=== PATIENT | female | born 1950 | race Caucasian/White ===

== ENCOUNTER → 2016-08-17 | Outpatient (REF) | payer BC ==
[~2016-08-17] MED LIST: *MAMMOGRAM; /LANS30GR; /MOXI40TA; ACET65TA; ASPEC81; ATEN25TA; ATENOLOL50 PO; ATRO0.06; BACTRIMDS PO; CALC600T10; CALCCHW12; CALCWAF4; CELE50CA; CELEBRE200 PO; CIPRO250 PO; ESTR3TA; HYDR25TA6; K-DUR10; LASIX40 PO; LODINE500 PO; LYRICA50 PO; MACROBID PO; MULTIVIT; NAPROSY250 PO; NASONEX NASAL; PREG100CA; PREVACID30 PO; PROTONIX40 PO; PROV90AE; PYRIDIU200 PO; RELAFEN PO; TENO50TA; THERGRAN; VIOXX25 PO; [UNRECOGNIZED DRUG - CODE] PO; [UNRECOGNIZED DRUG - CODE] PO; [UNRECOGNIZED DRUG - REMARK]
[2016-08-17 10:32] LABS: BASO % 0.9 % (0.0-1.0); EOS # 0.1 K/mm3 (0.0-0.50); EOS % 1.8 % (0.0-3.0); LARGE UNSTAINED CELL # 0.4 K/mm3 (0.0-0.4); LARGE UNSTAINED CELL % 6.6 % (0.0-4.0); LYMPH # 1.9 K/mm3 (1.5-4.5); LYMPH % 23.4 % (24.0-44.0); MEAN CORPUSCULAR HEMOGLOBIN 30.3 pg (27.0-33.0); MEAN CORPUSCULAR HGB CONC 32.3 g/dl (32.0-36.5); MEAN CORPUSCULAR VOLUME 93.7 fl (80.0-96.0); MONO # 0.6 K/mm3 (0.0-0.8); MONO % 8.8 % (0.0-5.0); NEUTROPHILS # 3.8 K/mm3 (1.8-7.7); NEUTROPHILS % 58.6 % (36.0-66.0); PLATELET COUNT, AUTOMATED 264 k/mm3 (150-450); WHITE BLOOD COUNT 6.4 K/mm3 (4.0-10.0)
[2016-08-17 11:13] LABS: ALBUMIN 3.8 GM/DL (3.2-5.2); ALBUMIN/GLOBULIN RATIO 1.12 (1.00-1.93); BILIRUBIN,TOTAL 0.5 MG/DL (0.2-1.0); CALCIUM LEVEL 8.7 MG/DL (8.8-10.2); CREATININE FOR GFR 1.09 MG/DL (0.55-1.02); FREE T4 1.05 NG/DL (0.76-1.46); GLOMERULAR FILTRATION RATE 53.8 (>45); POTASSIUM SERUM 3.8 MEQ/L (3.5-5.1); TOTAL PROTEIN 7.2 GM/DL (6.4-8.2)
== END ==
LOC: M SFHCPLAZ 08:02
PROVIDERS: ATTEND Family Medicine
DX: R73.01 Impaired fasting glucose (principal); I10 Essential (primary) hypertension; E78.2 Mixed hyperlipidemia; F32.9 Major depressive disorder, single episode, unspecified

== ENCOUNTER → 2016-08-26 | Outpatient (CLI) | payer BC | LOC: M SLEEP HO 09:57 | PROVIDERS: ATTEND Family Medicine | DX: G47.33 Obstructive sleep apnea (adult) (pediatric) (principal) ==

== ENCOUNTER → 2016-09-15 | Outpatient (CLI) | payer BC ==
[~2016-09-15] VITALS: Ht 162.6 cm; Wt 106.6 kg
[~2016-09-15] MED LIST changes: +AMBI10TA PO; +ASPI81TA85 PO; +ATOR1TAB21 PO; +CELE-19 PO; +CRAN1000 PO; +DICL5SOL TD; +DULC5TAB PO; +FLON1SPR; +FURO40TA2 PO; +HYDR-3713 PO; +KLOR1CAP2 PO; +LEXA1TAB PO; +LYRI100C10 PO; +MIRA3350 PO; +NS 1,000 ML IV SCH; +PREV30CA11 PO; +PROA1AER INH; +PROPOFOL 200 MG/20 ML VIAL As Ordered ONE; +TENO1TAB PO; +VESI10TA PO; +VITA-112 PO; +VITATAB21 PO
--- NOTE | 2016-09-15 13:13 | ROOR ---
Patient Name: Kira Krishna Procedure Date: 09/15/2016 12:39 PM Date of : 1950 Age: 65 Room: [facility] Gender: Female Note Status: Finalized Procedure: Colonoscopy Indications: Screening for colorectal malignant neoplasm Providers: Demetrio SHIELDS MD Referring MD: Craig Dial MD Requesting Provider: Medicines: Monitored Anesthesia Care Complications: No immediate complications. Procedure: Pre-Anesthesia Assessment: - The heart rate, respiratory rate, oxygen saturations, blood pressure, adequacy of pulmonary ventilation, and response to care were monitored throughout the procedure. The Colonoscope was introduced through the anus and advanced to the cecum, identified by appendiceal orifice and ileocecal valve. The colonoscopy was somewhat difficult due to extrinsic compression and multiple diverticula in the colon. Successful completion of the procedure was aided by changing the patient to a supine position, withdrawing the scope and replacing with the pediatric colonoscope and applying abdominal pressure. The patient tolerated the procedure well. The quality of the bowel preparation was good. Findings: The perianal and digital rectal examinations were normal. (Exam: Complete, Prep: Good or Excellent.) Multiple small and large-mouthed diverticula were found in the sigmoid colon. There was narrowing of the colon in association with the diverticular opening. There was evidence of diverticular spasm. The scope was withdrawn and replaced with the pediatric colonoscope in order to accomplish the maneuver. The entire examined colon appeared normal on direct and retroflexion views. Impression: - Moderate to severe diverticulosis in the sigmoid colon. There was spasm and narrowing of the colon in association with the diverticular opening. - The entire examined colon is otherwise normal on direct and retroflexion views. - No specimens collected. Recommendation: - Repeat colonoscopy in 10 years for screening purposes. Demetrio Shields MD Demetrio SHIELDS MD 09/15/2016 1:13:21 PM This report has been signed electronically. Number of Addenda: 0 Note Initiated On: 09/15/2016 12:39 PM Estimated Blood Loss: Estimated blood loss: none.
[2016-09-15 13:48] VITALS: BP 109/57
== END | disposition home or self-care (01) ==
LOC: M OPP 10:43
PROVIDERS: ATTEND Internal Medicine Gastroenterology
DX: Z12.11 Encounter for screening for malignant neoplasm of colon (principal); K57.30 Diverticulosis of large intestine without perforation or abscess without bleeding; K58.9 Irritable bowel syndrome, unspecified; I10 Essential (primary) hypertension; E78.5 Hyperlipidemia, unspecified; R60.0 Localized edema; K59.00 Constipation, unspecified; R12 Heartburn; M19.90 Unspecified osteoarthritis, unspecified site; M54.9 Dorsalgia, unspecified; K21.9 Gastro-esophageal reflux disease without esophagitis; F41.9 Anxiety disorder, unspecified; F32.9 Major depressive disorder, single episode, unspecified; R06.83 Snoring; R06.02 Shortness of breath; R32 Unspecified urinary incontinence; Z79.82 Long term (current) use of aspirin; Z79.899 Other long term (current) drug therapy
CPT/HCPCS: 99156; 99157; G0121

== ENCOUNTER → 2016-12-26 | Outpatient (REF) | payer BC ==
[~2016-12-26] MED LIST changes: -CELE-19 PO; +CELE1CAP4 PO; -LYRI100C10 PO; -NS 1,000 ML IV SCH; +PREG100CA PO; +PREV1CAP PO; -PREV30CA11 PO; -PROA1AER INH; +PROAAER10 INH; -PROPOFOL 200 MG/20 ML VIAL As Ordered ONE; -VESI10TA PO; +VESI10TA2 PO
[2016-12-26 11:47] LABS: BASO # 0.1 K/mm3 (0.0-0.2); EOS # 0.1 K/mm3 (0.0-0.50); EOS % 1.9 % (0.0-3.0); LARGE UNSTAINED CELL # 0.5 K/mm3 (0.0-0.4); LARGE UNSTAINED CELL % 6.6 % (0.0-4.0); LYMPH % 22.1 % (24.0-44.0); MEAN CORPUSCULAR HEMOGLOBIN 30.9 pg (27.0-33.0); MEAN CORPUSCULAR HGB CONC 32.7 g/dl (32.0-36.5); MEAN CORPUSCULAR VOLUME 94.4 fl (80.0-96.0); MONO # 0.5 K/mm3 (0.0-0.8); MONO % 6.4 % (0.0-5.0); NEUTROPHILS # 4.3 K/mm3 (1.8-7.7); PLATELET COUNT, AUTOMATED 277 k/mm3 (150-450); RED CELL DISTRIBUTION WIDTH 13.4 % (11.5-14.5)
[2016-12-26 12:02] LABS: ALBUMIN 3.6 GM/DL (3.2-5.2); ALBUMIN/GLOBULIN RATIO 1.03 (1.00-1.93); BILIRUBIN,TOTAL 0.4 MG/DL (0.2-1.0); CALCIUM LEVEL 9.1 MG/DL (8.8-10.2); CREATININE FOR GFR 1.12 MG/DL (0.55-1.02); MAGNESIUM LEVEL 1.9 MG/DL (1.8-2.4); PERCENT SATURATION 25.6 % (13.2-37.4); POTASSIUM SERUM 4.3 MEQ/L (3.5-5.1); TOTAL PROTEIN 7.1 GM/DL (6.4-8.2)
== END ==
LOC: M SFHCPLAZ 07:56
PROVIDERS: ATTEND Family Medicine
DX: E55.9 Vitamin D deficiency, unspecified (principal); R73.01 Impaired fasting glucose; I10 Essential (primary) hypertension

== ENCOUNTER → 2017-06-14 | Outpatient (CLI) | payer BC, MEDICARE ==
--- NOTE | 2017-06-14 10:55 | REPMRS ---
Patient History The patient states she has not had a clinical breast exam in over a year. Patient is postmenopausal. No known family history of cancer. Benign excisional biopsy of the left breast, 1998. Taking estrogen for 2 years. Digital Woman Screen Mammo: June 14, 2017 - Exam #: [id number] Bilateral CC and MLO view(s) were taken. Technologist: Libby Fisher Technologist Prior study comparison: March 18, 2016, digital woman screen mammo performed at [facility]. January 15, 2015, digital woman screen mammo performed at [facility]. FINDINGS: There are scattered fibroglandular densities. There has been no change in the appearance of the mammogram from the prior studies. There is a mild amount of residual fibroglandular tissue which is fairly symmetric. There is no interval development of dominant mass, architectural distortion, or clustered microcalcification suggestive of malignancy. ASSESSMENT: BI-RADS/ACR category 1 mammogram. Negative. Recommendation Routine screening mammogram in 1 year (for women over age 40). This mammogram was interpreted with the aid of an FDA-approved computer-aided dectection system. Electronically Signed By: Marito Humphries MD 06/14/17 [id number]
== END ==
LOC: M WHC 09:23
PROVIDERS: ATTEND Family Medicine
DX: Z12.31 Encounter for screening mammogram for malignant neoplasm of breast (principal); Z78.0 Asymptomatic menopausal state; Z79.890 Hormone replacement therapy

== ENCOUNTER → 2017-07-31 | Outpatient (REF) | payer BC, MEDICARE ==
[2017-07-31 11:46] LABS: BASO # 0.1 10^3/uL (0.0-0.2); BASO % 0.8 % (0.0-1.0); EOS # 0.1 10^3/uL (0.0-0.50); EOS % 1.8 % (0.0-3.0); HEMATOCRIT 45.2 % (36.0-47.0); HEMOGLOBIN 14.7 g/dl (12.0-16.0); IMMATURE GRANULOCYTE % 0.4 % (0-0); LYMPH # 1.2 10^3/uL (1.5-4.5); LYMPH % 15.3 % (24.0-44.0); MEAN CORPUSCULAR HEMOGLOBIN 30.1 pg (27.0-33.0); MEAN CORPUSCULAR HGB CONC 32.5 g/dl (32.0-36.5); MEAN CORPUSCULAR VOLUME 92.6 fl (80.0-96.0); MONO # 0.8 10^3/uL (0.0-0.8); MONO % 10.8 % (0.0-5.0); NEUTROPHILS # 5.5 10^3/uL (1.8-7.7); NEUTROPHILS % 70.9 % (36.0-66.0); PLATELET COUNT, AUTOMATED 289 10^3/uL (150-450); RED BLOOD COUNT 4.88 10^6/uL (4.00-5.40); RED CELL DISTRIBUTION WIDTH 13.6 % (11.5-14.5); WHITE BLOOD COUNT 7.8 10^3/uL (4.0-10.0)
[2017-07-31 12:08] LABS: ALBUMIN 3.6 GM/DL (3.2-5.2); ALBUMIN/GLOBULIN RATIO 1.03 (1.00-1.93); ALKALINE PHOSPHATASE 158 U/L (45-117); ALT/SGPT 27 U/L (12-78); ANION GAP 11 MEQ/L (8-16); AST/SGOT 21 U/L (7-37); BILIRUBIN,TOTAL 0.5 MG/DL (0.2-1.0); BLOOD UREA NITROGEN 21 MG/DL (7-18); CARBON DIOXIDE LEVEL 31 MEQ/L (21-32); CHLORIDE LEVEL 102 MEQ/L (98-107); CREATININE FOR GFR 1.12 MG/DL (0.55-1.30); FERRITIN 80 NG/ML (8-252); GLUCOSE, FASTING 98 MG/DL (70-100); IRON (FE) 59 UG/DL (50-170); MAGNESIUM LEVEL 1.5 MG/DL (1.8-2.4); PERCENT SATURATION 16.4 % (13.2-45.0); POTASSIUM SERUM 3.7 MEQ/L (3.5-5.1); SODIUM LEVEL 144 MEQ/L (136-145); TOTAL IRON BINDING CAPACITY 360 UG/DL (250-450); TOTAL PROTEIN 7.1 GM/DL (6.4-8.2)
[2017-07-31 12:18] LABS: ESTIMATED AVERAGE GLUCOSE 123 MG/DL (60-110); HEMOGLOBIN A1c 5.9 %
== END ==
LOC: M SFHCPLAZ 08:41
DX: N18.3 Chronic kidney disease, stage 3 (moderate) (principal); R73.01 Impaired fasting glucose
CPT/HCPCS: 83550

== ENCOUNTER → 2018-01-01 | Outpatient (REF) | payer MEDICARE ==
[2018-01-01 12:33] LABS: APPEARANCE, URINE CLEAR (CLEAR); BACTERIA, URINE AUTO 3+ (NEGATIVE); BILIRUBIN, URINE AUTO NEGATIVE (NEGATIVE); BLOOD, URINE BLOOD NEGATIVE (NEGATIVE); COLOR, URINE YELLOW (YELLOW); GLUCOSE, URINE (UA) AUTO NEGATIVE (NEGATIVE); KETONE, URINE AUTO NEGATIVE (NEGATIVE); LEUKOCYTE ESTERASE, URINE AUTO TRACE (NEGATIVE); NITRITE, URINE AUTO NEGATIVE (NEGATIVE); PROTEIN, URINE AUTO NEGATIVE (NEGATIVE); RBC, URINE AUTO 1 /HPF (0-3); SPECIFIC GRAVITY URINE AUTO 1.016 (1.002-1.035); SQUAMOUS EPITHELIAL CELL UR AU 1 /HPF (0-6); UROBILINOGEN, URINE AUTO 0.2 mg/dL (0.0-2.0); WBC, URINE AUTO 20 /HPF (0-3)
[2018-01-01 12:49] LABS: ALBUMIN 3.9 GM/DL (3.2-5.2); ALBUMIN/GLOBULIN RATIO 1.08 (1.00-1.93); ALKALINE PHOSPHATASE 144 U/L (45-117); ALT/SGPT 37 U/L (12-78); ANION GAP 7 MEQ/L (8-16); AST/SGOT 22 U/L (7-37); BILIRUBIN,TOTAL 0.4 MG/DL (0.2-1.0); BLOOD UREA NITROGEN 21 MG/DL (7-18); CALCIUM LEVEL 8.9 MG/DL (8.8-10.2); CARBON DIOXIDE LEVEL 31 MEQ/L (21-32); CHLORIDE LEVEL 104 MEQ/L (98-107); CREATININE FOR GFR 1.01 MG/DL (0.55-1.30); GLOMERULAR FILTRATION RATE 58.4 (>45); GLUCOSE, FASTING 91 MG/DL (70-100); MAGNESIUM LEVEL 1.9 MG/DL (1.8-2.4); POTASSIUM SERUM 4.1 MEQ/L (3.5-5.1); SODIUM LEVEL 142 MEQ/L (136-145); TOTAL 25(OH) VITAMIN D 46.6 NG/ML (30.0-100.0); TOTAL PROTEIN 7.5 GM/DL (6.4-8.2)
[2018-01-01 12:50] LABS: PTH INTACT 57.5 PG/ML (18.5-88.0)
[2018-01-01 13:10] LABS: CREATININE, URINE 91.2 MG/DL; MALB URINE SIEMENS 14.1 MG/L; MAU/CREAT RATIO 15.4 MCG/MG (0.0-30.0)
[2018-01-01 13:12] LABS: ESTIMATED AVERAGE GLUCOSE 126 MG/DL (60-110)
[2018-01-05 00:13] LABS: AMPHETAMINE SCREEN, URINE Negative ng/mL (Cutoff=1000); BARBITURATES SCREEN, URINE Negative ng/mL (Cutoff=200); BENZODIAZEPINES, URINE SCREEN Negative ng/mL (Cutoff=200); CANNABINOID SCREEN, URINE Negative ng/mL (Cutoff=20); COCAINE SCREEN, URINE Negative ng/mL (Cutoff=300); CREATININE, URINE 89.9 mg/dL (20.0-300.0); FENTANYL URINE SCREEN Negative pg/mL (Cutoff=2000); METHADONE, URINE SCREEN Negative ng/mL (Cutoff=300); OPIATE SCREEN, URINE Negative ng/mL (Cutoff=300); OXYCODONE, SCREEN, URINE Negative ng/mL (Cutoff=100); PCP SCREEN, URINE Negative ng/mL (Cutoff=25); SPECIFIC GRAVITY, URINE 1.023 (.)
== END ==
LOC: M SFHCPLAZ 08:30
DX: E55.9 Vitamin D deficiency, unspecified (principal); R73.01 Impaired fasting glucose
CPT/HCPCS: 83735

== ENCOUNTER → 2018-01-23 | Outpatient (CLI) | payer MEDICARE | LOC: M RAD 09:41 | DX: M75.41 Impingement syndrome of right shoulder (principal); M76.62 Achilles tendinitis, left leg; M19.072 Primary osteoarthritis, left ankle and foot; M77.32 Calcaneal spur, left foot | CPT/HCPCS: 73030 ==

== ENCOUNTER → 2018-05-28 | Outpatient (REF) | payer MEDICARE ==
[2018-05-28 13:43] LABS: ALBUMIN 3.6 GM/DL (3.2-5.2); ALBUMIN/GLOBULIN RATIO 1.09 (1.00-1.93); ALKALINE PHOSPHATASE 139 U/L (45-117); ALT/SGPT 31 U/L (12-78); ANION GAP 10 MEQ/L (8-16); AST/SGOT 20 U/L (7-37); BILIRUBIN,TOTAL 0.3 MG/DL (0.2-1.0); BLOOD UREA NITROGEN 20 MG/DL (7-18); C REACTIVE PROTEIN QUANTITATIV 0.66 MG/DL (0.00-0.30); CALCIUM LEVEL 9.1 MG/DL (8.8-10.2); CARBON DIOXIDE LEVEL 28 MEQ/L (21-32); CHLORIDE LEVEL 103 MEQ/L (98-107); CHOLESTEROL LEVEL 179 MG/DL (<200); CPK CREATINE PHOSPHOKINASE 110 U/L (26-192); CREATININE FOR GFR 1.09 MG/DL (0.55-1.30); GLOMERULAR FILTRATION RATE 53.5 (>45); GLUCOSE, FASTING 109 MG/DL (70-100); HDL CHOLESTEROL 50 MG/DL (>40); LDL CHOLESTEROL 89 MG/DL (<100); NON-HDL-C 129 MG/DL; POTASSIUM SERUM 4.2 MEQ/L (3.5-5.1); SODIUM LEVEL 141 MEQ/L (136-145); TOTAL PROTEIN 6.9 GM/DL (6.4-8.2); TRIGLYCERIDES LEVEL 201 MG/DL (<150); URIC ACID 7.7 MG/DL (2.6-6.0)
[2018-05-28 14:56] LABS: ESTIMATED AVERAGE GLUCOSE 131 MG/DL (60-110); HEMOGLOBIN A1c 6.2 %
[2018-05-29 14:13] LABS: INSULIN LEVEL 44.8 uIU/mL (2.6-24.9)
== END ==
LOC: M SFHCPLAZ 08:31
DX: E78.2 Mixed hyperlipidemia (principal); R73.01 Impaired fasting glucose; M10.9 Gout, unspecified
CPT/HCPCS: 82550

== ENCOUNTER → 2018-09-25 | Outpatient (REF) | payer MEDICARE ==
[~2018-09-25] MED LIST changes: -/MOXI40TA; +AVEL1TAB2
[2018-09-25 12:11] LABS: AMORPHOUS SEDIMENT SMALL (NEGATIVE); APPEARANCE, URINE CLEAR (CLEAR); BACTERIA, URINE AUTO 2+ (NEGATIVE); BILIRUBIN, URINE AUTO NEGATIVE (NEGATIVE); BLOOD, URINE BLOOD NEGATIVE (NEGATIVE); COLOR, URINE YELLOW (YELLOW); GLUCOSE, URINE (UA) AUTO NEGATIVE (NEGATIVE); KETONE, URINE AUTO NEGATIVE (NEGATIVE); LEUKOCYTE ESTERASE, URINE AUTO TRACE (NEGATIVE); MUCUS, URINE SMALL (NEGATIVE); NITRITE, URINE AUTO NEGATIVE (NEGATIVE); PROTEIN, URINE AUTO NEGATIVE (NEGATIVE); RBC, URINE AUTO 3 /HPF (0-3); SPECIFIC GRAVITY URINE AUTO 1.015 (1.002-1.035); SQUAMOUS EPITHELIAL CELL UR AU 1 /HPF (0-6); UROBILINOGEN, URINE AUTO 0.2 mg/dL (0.0-2.0); WBC, URINE AUTO 34 /HPF (0-3)
[2018-09-25 12:16] LABS: BASO # 0.1 10^3/uL (0.0-0.2); BASO % 0.8 % (0.0-1.0); EOS # 0.2 10^3/uL (0.0-0.50); EOS % 2.4 % (0.0-3.0); HEMATOCRIT 44.9 % (36.0-47.0); HEMOGLOBIN 14.3 g/dl (12.0-15.5); LYMPH # 1.3 10^3/uL (1.5-4.5); LYMPH % 18.1 % (24.0-44.0); MEAN CORPUSCULAR HEMOGLOBIN 30.3 pg (27.0-33.0); MEAN CORPUSCULAR HGB CONC 31.8 g/dl (32.0-36.5); MEAN CORPUSCULAR VOLUME 95.1 fl (80.0-96.0); MONO # 0.6 10^3/uL (0.0-0.8); MONO % 7.8 % (0.0-5.0); NEUTROPHILS % 70.2 % (36.0-66.0); PLATELET COUNT, AUTOMATED 319 10^3/uL (150-450); RED BLOOD COUNT 4.72 10^6/uL (4.00-5.40); WHITE BLOOD COUNT 7.1 10^3/uL (4.0-10.0)
[2018-09-25 12:23] LABS: ALBUMIN 3.7 GM/DL (3.2-5.2); BILIRUBIN,TOTAL 0.4 MG/DL (0.2-1.0); CALCIUM LEVEL 8.9 MG/DL (8.8-10.2); CREATININE FOR GFR 1.08 MG/DL (0.55-1.30); FREE T4 1.12 NG/DL (0.76-1.46); POTASSIUM SERUM 4.4 MEQ/L (3.5-5.1); THYROID STIMULATING HORMONE 2.7 uIU/ML (0.358-3.740); TOTAL PROTEIN 6.8 GM/DL (6.4-8.2)
[2018-09-25 12:24] LABS: TOTAL 25(OH) VITAMIN D 43.3 NG/ML (30.0-100.0)
[2018-09-25 12:25] LABS: PTH INTACT 47.4 PG/ML (18.5-88.0)
[2018-09-25 12:33] LABS: MALB URINE SIEMENS 13.3 MG/L; MAU/CREAT RATIO 15.1 MCG/MG (0.0-30.0)
[2018-09-25 13:07] LABS: HEMOGLOBIN A1c 6.2 %
== END ==
LOC: M SFHCPLAZ 08:30
PROVIDERS: ATTEND Family Medicine
DX: N18.3 Chronic kidney disease, stage 3 (moderate) (principal); E78.2 Mixed hyperlipidemia; R73.01 Impaired fasting glucose

== ENCOUNTER → 2018-10-09 | Outpatient (CLI) | payer MEDICARE ==
--- NOTE | 2018-10-09 10:17 | REPMRS ---
Patient History The patient states she has not had a clinical breast exam in over a year. Patient is postmenopausal. No known family history of cancer. Benign excisional biopsy of the left breast, 1998. Took estrogen for 2 years. Digital Woman Screen Mammo: October 09, 2018 - Exam #: [id number] Bilateral CC and MLO view(s) were taken. Technologist: Neris Callejas, Technologist Prior study comparison: June 14, 2017, digital woman screen mammo performed at [facility]. March 18, 2016, digital woman screen mammo performed at [facility]. January 15, 2015, digital woman screen mammo performed at [facility]. FINDINGS: There are scattered fibroglandular densities. There has been no change in the appearance of the mammogram from the prior studies. There is a mild amount of scattered fibroglandular density which is fairly symmetric. There is no interval development of dominant mass, architectural distortion, or clustered microcalcification suggestive of malignancy. 3-D tomosynthesis shows no additional findings. Assessment: BI-RADS/ACR category 1 mammogram. Negative Mammogram. Recommendation Routine screening mammogram of both breasts in 1 year (for women over age 40). This patient's Lifetime Breast Cancer RIsk is estimated at 4.6 %. This mammogram was interpreted with the aid of an FDA-approved computer-aided dectection system. Electronically Signed By: Thaddeus Rodrigues MD 10/09/18 [id number]
== END ==
LOC: M WHC 08:28
PROVIDERS: ATTEND Physician Assistant Medical
DX: Z12.31 Encounter for screening mammogram for malignant neoplasm of breast (principal)

== ENCOUNTER → 2019-02-07 | Outpatient (REF) | payer MEDICARE ==
[2019-02-07 11:34] LABS: ALBUMIN 3.7 GM/DL (3.2-5.2); BILIRUBIN,TOTAL 0.3 MG/DL (0.2-1.0); CALCIUM LEVEL 9.2 MG/DL (8.8-10.2); CHOLESTEROL RISK RATIO 3.396 (<5); CREATININE FOR GFR 1.07 MG/DL (0.55-1.30); GLOMERULAR FILTRATION RATE 54.5 (>45); MAGNESIUM LEVEL 1.9 MG/DL (1.8-2.4); POTASSIUM SERUM 4.1 MEQ/L (3.5-5.1)
[2019-02-07 14:37] LABS: HEMOGLOBIN A1c 6.3 %
== END ==
LOC: M SFHCPLAZ 08:12
PROVIDERS: ATTEND Physician Assistant Medical
DX: E78.2 Mixed hyperlipidemia (principal); N18.3 Chronic kidney disease, stage 3 (moderate); R73.01 Impaired fasting glucose

== ENCOUNTER → 2019-03-15 | Outpatient (CLI) | payer MEDICARE ==
[~2019-03-15] MED LIST changes: +E-Z-GAS II EFFERVESCENT PACKET (SODIUM BICARB./CITRIC ACID/SIMETHICONE) As Ordered ONE; +E-Z-HD 98% w/w 340GM SUSP BTL As Ordered ONE; +E-Z-PAQUE 96% w/w SUSP 176GM BTL As Ordered ONE
--- NOTE | 2019-03-15 09:46 | REP ---
Right knee five views : There is no fracture or dislocation. Mineralization and joint spaces are normal. There are no calcifications or foreign bodies. Impression: Negative right knee Left knee five views : There is no fracture or dislocation. Mineralization and joint spaces are normal. There are no calcifications or foreign bodies. Impression: Negative left knee . . Electronically Signed by Marito Underwood MD 03/15/2019 09:37 A
--- NOTE | 2019-03-15 09:47 | REP ---
Bilateral knees, single AP view with the patient standing: Mineralization is normal. The medial lateral joint spaces are normal bilaterally. There is no joint space narrowing of the medial lateral compartments. There are no calcifications or foreign bodies. Impression: Negative standing view of both knees. There is no joint space narrowing of the medial or lateral compartments. Electronically Signed by Marito Underwood MD 03/15/2019 09:38 A
--- NOTE | 2019-03-15 17:34 | REP ---
UPPER GI AIR CONTRAST AND SMALL BOWEL FOLLOW THROUGH The procedure was performed under the direct supervision of Dr. Humphries. The images were reviewed with Dr. Humphries The engineering recruiter film shows no organomegaly or pathological masses. The intestinal gas pattern is non-specific. Liquid barium and gas producing crystals were given in the erect position as well as liquid barium in the prone oblique position in order to perform a double contrast upper GI examination. Additionally liquid barium was given at the end of the examination in order to perform a small bowel follow through. The oral and pharyngeal stages of deglutition are unremarkable. Esophageal transport is prompt and efficient and there is no esophagitis, stricture, mucosal ring or hiatal hernia. Gastroesophageal reflux is not demonstrated on this examination. The stomach connors are normally outlined . The rugal folds are smooth and regular. There is no gastritis neoplasm or ulcer disease. The duodenal connors are normally outlined . The mucosal folds are smooth and regular. There is no duodenitis pancreatitis peptic ulcer disease or neoplasm. The visualized portion of the proximal small bowel appears normal in course and caliber. There is a diverticulum in the descending portion of the duodenum The barium column was followed through the small bowel to the level of the terminal ileum. Small bowel transit time is approximately 20 minutes . During fluoroscopy gentle palpation shows all loops are freely movable and pliable. There are no fixed or angulated loops. The small bowel mucosal pattern is normal in course and caliber. There is no transition to suggest a partial small-bowel obstruction. Spot filming of the terminal ileum shows it to be unremarkable. Impression: There is a diverticulum in the descending portion of the duodenum. Otherwise, unremarkable double contrast upper GI and small bowel follow through examination. 2.4 minutes of fluoro time was utilized for this procedure. Electronically Signed by REGINALDO Neal 03/15/2019 04:30 P Electronically Signed by Marito Humphries MD 03/15/2019 05:24 P
== END ==
LOC: M RAD 08:00
PROVIDERS: ATTEND Family Medicine
DX: M17.0 Bilateral primary osteoarthritis of knee (principal); R13.19 Other dysphagia

== ENCOUNTER → 2019-07-17 | Outpatient (CLI) | payer MEDICARE ==
[~2019-07-17] MED LIST changes: -E-Z-GAS II EFFERVESCENT PACKET (SODIUM BICARB./CITRIC ACID/SIMETHICONE) As Ordered ONE; -E-Z-HD 98% w/w 340GM SUSP BTL As Ordered ONE; -E-Z-PAQUE 96% w/w SUSP 176GM BTL As Ordered ONE
[2019-07-17 13:27] LABS: BASO # 0.1 10^3/uL (0.0-0.2); EOS # 0.2 10^3/uL (0.0-0.5); EOS % 2.6 % (0.0-3.0); HEMOGLOBIN 15.1 g/dl (12.0-15.5); LYMPH # 1.5 10^3/uL (1.5-5.0); LYMPH % 18.5 % (24.0-44.0); MEAN CORPUSCULAR HEMOGLOBIN 30.5 pg (27.0-33.0); MEAN CORPUSCULAR HGB CONC 32.1 g/dl (32.0-36.5); MEAN CORPUSCULAR VOLUME 94.9 fl (80.0-96.0); MONO # 0.7 10^3/uL (0.0-0.8); MONO % 8.1 % (0.0-5.0); NEUTROPHILS # 5.7 10^3/uL (1.5-8.5); NEUTROPHILS % 69.2 % (36.0-66.0); PLATELET COUNT, AUTOMATED 365 10^3/uL (150-450); RED BLOOD COUNT 4.95 10^6/uL (4.00-5.40); WHITE BLOOD COUNT 8.2 10^3/uL (4.0-10.0)
[2019-07-17 13:48] LABS: ALT/SGPT 22 U/L (12-78); BILIRUBIN,TOTAL 0.3 MG/DL (0.2-1.0); BLOOD UREA NITROGEN 17 MG/DL (7-18); CALCIUM LEVEL 9.2 MG/DL (8.8-10.2); CARBON DIOXIDE LEVEL 26 MEQ/L (21-32); CHLORIDE LEVEL 104 MEQ/L (98-107); CREATININE FOR GFR 0.96 MG/DL (0.55-1.30); FREE T4 1.25 NG/DL (0.76-1.46); GLOMERULAR FILTRATION RATE > 60.0 (>45); GLUCOSE, FASTING 99 MG/DL (70-100); POTASSIUM SERUM 4.5 MEQ/L (3.5-5.1); PTH INTACT 48.3 PG/ML (18.5-88.0); SODIUM LEVEL 140 MEQ/L (136-145); TOTAL 25(OH) VITAMIN D 33.7 NG/ML (30.0-100.0); TOTAL PROTEIN 7.3 GM/DL (6.4-8.2); VITAMIN B12 LEVEL 294 PG/ML (247-911)
[2019-07-17 15:18] LABS: HEMOGLOBIN A1c 5.7 %
[2019-07-19 14:07] LABS: CREATININE, URINE 139.3 mg/dL (20.0-300.0)
== END ==
LOC: M PLALAB 08:45
PROVIDERS: ATTEND Family Medicine
DX: E78.2 Mixed hyperlipidemia (principal); R73.01 Impaired fasting glucose; E55.9 Vitamin D deficiency, unspecified; I10 Essential (primary) hypertension; M47.816 Spondylosis without myelopathy or radiculopathy, lumbar region; Z79.82 Long term (current) use of aspirin

== ENCOUNTER → 2019-09-06 | Outpatient (CLI) | payer MEDICARE ==
--- NOTE | 2019-09-06 09:37 | REPPI ---
Cervical spine eight views: The vertebral body heights are normal C1-C7. T1 is obscured by the shoulders. There is degenerative disc disease at C2-C3, C4-5 and C5-6. There is approximately 3 mm of retrolisthesis of C5 and C6, likely secondary to the degenerative disc disease. The prevertebral soft tissues are normal. The facets are normally aligned. 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 On flexion and extension. There is no additional listhesis. The C5 listhesis does not correct. There is bony foraminal encroachment from uncinate spurring on the left at C 03/04 and 04/05 and 05/06. On the right. There is bony foraminal encroachment from uncinate spurring at C 05/06. Impression: Degenerative disc disease as described. Foraminal encroachment as described. 3 mm retrolisthesis of the C five, likely degenerative. Electronically Signed by Marito Underwood MD 09/06/2019 09:28 A
== END ==
LOC: M PLAIMG 07:59
PROVIDERS: ATTEND Family Medicine
DX: M43.02 Spondylolysis, cervical region (principal)

== ENCOUNTER → 2019-10-21 | Outpatient (REF) | payer MEDICARE ==
[2019-10-21 10:00] LABS: BASO # 0.1 10^3/uL (0.0-0.2); BASO % 0.7 % (0.0-1.0); EOS # 0.1 10^3/uL (0.0-0.5); EOS % 1.3 % (0.0-3.0); HEMATOCRIT 45.8 % (36.0-47.0); HEMOGLOBIN 15.2 g/dl (12.0-15.5); LYMPH # 1.9 10^3/uL (1.5-5.0); LYMPH % 18.9 % (24.0-44.0); MEAN CORPUSCULAR HGB CONC 33.2 g/dl (32.0-36.5); MEAN CORPUSCULAR VOLUME 93.3 fl (80.0-96.0); MONO # 0.8 10^3/uL (0.0-0.8); MONO % 7.8 % (0.0-5.0); NEUTROPHILS # 6.9 10^3/uL (1.5-8.5); NEUTROPHILS % 70.1 % (36.0-66.0); PLATELET COUNT, AUTOMATED 352 10^3/uL (150-450); RED BLOOD COUNT 4.91 10^6/uL (4.00-5.40); WHITE BLOOD COUNT 9.9 10^3/uL (4.0-10.0)
[2019-10-21 10:01] LABS: HEMATOCRIT 45.5 % (36.0-47.0)
[2019-10-21 10:07] LABS: ALBUMIN 3.6 GM/DL (3.2-5.2); ALT/SGPT 37 U/L (12-78); BILIRUBIN,TOTAL 0.4 MG/DL (0.2-1.0); BLOOD UREA NITROGEN 19 MG/DL (7-18); CALCIUM LEVEL 8.9 MG/DL (8.8-10.2); CARBON DIOXIDE LEVEL 31 MEQ/L (21-32); CHLORIDE LEVEL 101 MEQ/L (98-107); CREATININE FOR GFR 0.99 MG/DL (0.55-1.30); GLOMERULAR FILTRATION RATE 59.4 (>45); GLUCOSE, FASTING 101 MG/DL (70-100); MAGNESIUM LEVEL 1.7 MG/DL (1.8-2.4); POTASSIUM SERUM 4.1 MEQ/L (3.5-5.1); SODIUM LEVEL 138 MEQ/L (136-145); TOTAL PROTEIN 7.1 GM/DL (6.4-8.2); URIC ACID 7.2 MG/DL (2.6-6.0)
[2019-10-21 10:17] LABS: VITAMIN B12 LEVEL 989 PG/ML (247-911)
[2019-10-21 10:50] LABS: HEMOGLOBIN A1c 6.3 %
[2019-10-21 13:59] LABS: ALBUMIN % 57.8 % (55.8-66.1); ALPHA-1-GLOBULINS 0.28 GM/DL (0.17-0.41); ALPHA-2-GLOBULINS 0.91 GM/DL (0.42-0.99); ALPHA-2-GLOBULINS % 12.8 % (7.1-11.8); BETA-1-GLOBULINS 0.46 GM/DL (0.28-0.60); BETA-1-GLOBULINS % 6.5 % (4.7-7.2); BETA-2-GLOBULINS 0.49 GM/DL (0.19-0.55); BETA-2-GLOBULINS % 6.9 % (3.2-6.5); GAMMA GLOBULINS 0.85 GM/DL (0.65-1.58)
== END ==
LOC: M PLALAB 08:34
PROVIDERS: ATTEND Family Medicine
DX: R73.01 Impaired fasting glucose (principal); M10.9 Gout, unspecified; E53.8 Deficiency of other specified B group vitamins; Z79.899 Other long term (current) drug therapy

== ENCOUNTER → 2020-02-04 | Outpatient (CLI) | payer MEDICARE ==
[~2020-02-04] MED LIST changes: -ASPI81TA85 PO; +ASPI81TA86 PO
--- NOTE | 2020-02-20 17:21 | REPMRS ---
Patient History The patient states she has not had a clinical breast exam in over a year. Patient is postmenopausal. No known family history of cancer. Benign excisional biopsy of the left breast, 1998. Took estrogen for 2 years. Digital Woman Screen Mammo: February 04, 2020 - Exam #: [id number] Bilateral CC and MLO view(s) were taken. Technologist: Neris Callejas, Technologist Prior study comparison: October 09, 2018, bilateral digital woman screen mammo performed at [facility]. June 14, 2017, digital woman screen mammo performed at [facility]. March 18, 2016, digital woman screen mammo performed at [facility]. FINDINGS: The breast tissue is almost entirely fat. There has been no change in the appearance of the mammogram from the prior studies. There is no interval development of dominant mass, architectural distortion, or grouped microcalcification typical of malignancy. 3-D tomosynthesis shows no additional findings. Assessment: BI-RADS/ACR category 1 mammogram. Negative Mammogram. Recommendation Routine screening mammogram of both breasts in 1 year (for women over age 40). This patient's Lifetime Breast Cancer RIsk is estimated at 4.4 %. This mammogram was interpreted with the aid of an FDA-approved computer-aided dectection system. Electronically Signed By: Thaddeus Rodrigues MD 02/20/20 [id number]
--- NOTE | 2020-02-25 08:04 | DEXA ---
AP SPINE L1 - L4 1.554 2.9 4.5 LT FEMUR TOTAL 0.989 -0.2 1.2 LT NECK 0.831 -1.5 0.1 RT FEMUR TOTAL 0.042 0.3 1.6 RT NECK 0.942 -0.7 0.9 TOTAL BODY TOTAL OTHER COMMENTS: Normal Bone Densitometry of the spine and hips. The density of the spine has increased 37.0% since the initial exam on 05/01/2003. The decreased 16.5% since the most recent exam on 10/10/2013. The density of the left hip has decreased 0.2% since the initial exam on 05/01/2003. The density of the left hip has decreased 2.5% since the most recent exam on 10/10/2013. The density of the right hip has increased 8.8% since the initial exam on 05/01/2003. The density of the right hip has increased 3.1% since the most recent exam on 10/10/2013. FOLLOW-UP: Recommendation for the next bone density exam: 5 years. BEV
== END ==
LOC: M WHC 12:08
PROVIDERS: ATTEND Family Medicine
DX: Z12.31 Encounter for screening mammogram for malignant neoplasm of breast (principal); E55.9 Vitamin D deficiency, unspecified; M81.0 Age-related osteoporosis without current pathological fracture

== ENCOUNTER → 2020-03-18 | Outpatient (CLI) | payer MEDICARE ==
[2020-03-18 14:20] LABS: AMORPHOUS SEDIMENT SMALL (NEGATIVE); APPEARANCE, URINE CLOUDY (CLEAR); BACTERIA, URINE AUTO 3+ (NEGATIVE); BILIRUBIN, URINE AUTO NEGATIVE (NEGATIVE); BLOOD, URINE BLOOD NEGATIVE (NEGATIVE); CALCIUM OXALATE CRYSTALS LARGE; COLOR, URINE YELLOW (YELLOW); GLUCOSE, URINE (UA) AUTO NEGATIVE (NEGATIVE); KETONE, URINE AUTO TRACE mg/dL (NEGATIVE); LEUKOCYTE ESTERASE, URINE AUTO 3+ (NEGATIVE); NITRITE, URINE AUTO NEGATIVE (NEGATIVE); PROTEIN, URINE AUTO NEGATIVE (NEGATIVE); RBC, URINE AUTO 5 /HPF (0-3); SPECIFIC GRAVITY URINE AUTO 1.019 (1.002-1.035); SQUAMOUS EPITHELIAL CELL UR AU 3 /HPF (0-6); UROBILINOGEN, URINE AUTO 0.2 mg/dL (0.0-2.0); WBC, URINE AUTO 92 /HPF (0-3)
[2020-03-18 14:23] LABS: ALBUMIN 3.7 GM/DL (3.2-5.2); BILIRUBIN,TOTAL 0.2 MG/DL (0.2-1.0); CALCIUM LEVEL 9.3 MG/DL (8.8-10.2); CHOLESTEROL RISK RATIO 4.9 (<5); CREATININE FOR GFR 1.19 MG/DL (0.55-1.30); FREE T4 1.04 NG/DL (0.76-1.46); POTASSIUM SERUM 4.4 MEQ/L (3.5-5.1); THYROID STIMULATING HORMONE 1.54 uIU/ML (0.358-3.740); TOTAL PROTEIN 7.1 GM/DL (6.4-8.2)
[2020-03-18 14:48] LABS: MALB URINE SIEMENS 27.7 MG/L; MAU/CREAT RATIO 16.4 MCG/MG (0.0-30.0)
[2020-03-18 14:50] LABS: HEMOGLOBIN A1c 5.4 %
== END ==
LOC: M PLALAB 09:39
PROVIDERS: ATTEND Family Medicine
DX: I10 Essential (primary) hypertension (principal); E53.8 Deficiency of other specified B group vitamins; R73.01 Impaired fasting glucose; M17.9 Osteoarthritis of knee, unspecified

== ENCOUNTER → 2020-11-03 | Outpatient (REF) | payer MEDICARE ==
[2020-11-03 11:25] LABS: BASO # 0.1 10^3/uL (0.0-0.2); BASO % 0.8 % (0.0-1.0); EOS # 0.2 10^3/uL (0.0-0.5); EOS % 2.5 % (0.0-3.0); HEMATOCRIT 42.7 % (36.0-47.0); HEMOGLOBIN 13.5 g/dl (12.0-15.5); LYMPH # 1.7 10^3/uL (1.5-5.0); LYMPH % 22.2 % (24.0-44.0); MEAN CORPUSCULAR HEMOGLOBIN 30.6 pg (27.0-33.0); MEAN CORPUSCULAR HGB CONC 31.6 g/dl (32.0-36.5); MEAN CORPUSCULAR VOLUME 96.8 fl (80.0-96.0); MONO # 0.7 10^3/uL (0.0-0.8); MONO % 8.8 % (2.0-8.0); NEUTROPHILS % 65.1 % (36.0-66.0); PLATELET COUNT, AUTOMATED 328 10^3/uL (150-450); RED BLOOD COUNT 4.41 10^6/uL (4.00-5.40); WHITE BLOOD COUNT 7.7 10^3/uL (4.0-10.0)
[2020-11-03 11:50] LABS: C REACTIVE PROTEIN QUANTITATIV < 0.30 MG/DL (0.00-0.30); CHOLESTEROL LEVEL 155 MG/DL (<200); CPK CREATINE PHOSPHOKINASE 62 U/L (26-192); FERRITIN 94 NG/ML (8-252); HDL CHOLESTEROL 50 MG/DL (>40); LDL CHOLESTEROL 76 MG/DL (<100); NON-HDL-C 105 MG/DL; TRIGLYCERIDES LEVEL 145 MG/DL (<150)
[2020-11-03 11:56] LABS: PTH INTACT 43.4 PG/ML (18.5-88.0); TOTAL 25(OH) VITAMIN D 47.1 NG/ML (30.0-100.0)
[2020-11-03 12:08] LABS: HEMOGLOBIN A1c 5.4 %
== END ==
LOC: M SFHCPLAZ 09:11
PROVIDERS: ATTEND Family Medicine
DX: E78.2 Mixed hyperlipidemia (principal); I10 Essential (primary) hypertension; E55.9 Vitamin D deficiency, unspecified; R73.01 Impaired fasting glucose; Z79.899 Other long term (current) drug therapy

== ENCOUNTER → 2020-11-13 | Outpatient (REF) | payer MEDICARE ==
[2020-11-13 12:37] LABS: BASO # 0.1 10^3/uL (0.0-0.2); EOS # 0.2 10^3/uL (0.0-0.5); HEMATOCRIT 44.5 % (36.0-47.0); HEMOGLOBIN 14.4 g/dl (12.0-15.5); LYMPH # 2.2 10^3/uL (1.5-5.0); LYMPH % 23.9 % (24.0-44.0); MEAN CORPUSCULAR HEMOGLOBIN 31.2 pg (27.0-33.0); MEAN CORPUSCULAR HGB CONC 32.4 g/dl (32.0-36.5); MEAN CORPUSCULAR VOLUME 96.5 fl (80.0-96.0); MONO # 0.8 10^3/uL (0.0-0.8); MONO % 8.8 % (2.0-8.0); NEUTROPHILS # 5.9 10^3/uL (1.5-8.5); NEUTROPHILS % 63.4 % (36.0-66.0); PLATELET COUNT, AUTOMATED 454 10^3/uL (150-450); RED BLOOD COUNT 4.61 10^6/uL (4.00-5.40); WHITE BLOOD COUNT 9.3 10^3/uL (4.0-10.0)
[2020-11-13 13:08] LABS: ALBUMIN 3.6 GM/DL (3.2-5.2); BILIRUBIN,TOTAL 0.4 MG/DL (0.2-1.0); CALCIUM LEVEL 10.2 MG/DL (8.8-10.2); CREATININE FOR GFR 1.28 MG/DL (0.55-1.30); POTASSIUM SERUM 4.4 MEQ/L (3.5-5.1); TOTAL PROTEIN 7.4 GM/DL (6.4-8.2)
[2020-11-13 13:29] LABS: APPEARANCE, URINE CLOUDY (CLEAR); BACTERIA, URINE AUTO 3+ (NEGATIVE); BILIRUBIN, URINE AUTO NEGATIVE (NEGATIVE); BLOOD, URINE BLOOD 2+ (NEGATIVE); COLOR, URINE YELLOW (YELLOW); GLUCOSE, URINE (UA) AUTO NEGATIVE (NEGATIVE); KETONE, URINE AUTO NEGATIVE (NEGATIVE); LEUKOCYTE ESTERASE, URINE AUTO 3+ (NEGATIVE); NITRITE, URINE AUTO POSITIVE (NEGATIVE); PROTEIN, URINE AUTO 1+ mg/dL (NEGATIVE); RBC, URINE AUTO 33 /HPF (0-3); SPECIFIC GRAVITY URINE AUTO 1.017 (1.002-1.035); SQUAMOUS EPITHELIAL CELL UR AU 5 /HPF (0-6); UROBILINOGEN, URINE AUTO 0.2 mg/dL (0.0-2.0); WBC, URINE AUTO TNTC /HPF (0-3)
== END ==
LOC: M SFHCPLAZ 10:54
PROVIDERS: ATTEND Family Medicine
DX: R30.0 Dysuria (principal)

== ENCOUNTER → 2020-11-30 | Outpatient (REF) | payer MEDICARE | LOC: M LAB REF 18:58 | PROVIDERS: ATTEND Family Medicine | DX: C44.319 Basal cell carcinoma of skin of other parts of face (principal) ==

== ENCOUNTER → 2021-03-09 | Outpatient (CLI) | payer MEDICARE ==
[~2021-03-09] MED LIST changes: -DICL5SOL TD; +DICL5SOL3 TD
--- NOTE | 2021-03-09 11:33 | REPMRS ---
Patient History The patient states she had a clinical breast exam in November 2020. Patient is postmenopausal and has history of skin cancer at age 70. No known family history of cancer. Benign excisional biopsy of the left breast, 1998. Took estrogen for 2 years. Patient states no breast complaints today. Patient has signed MRS History Sheet. Digital Woman Screen Mammo: March 09, 2021 - Exam #: [id number] Bilateral CC and MLO view(s) were taken. Technologist: Cecile Rodriguez, Technologist Prior study comparison: February 04, 2020, bilateral digital woman screen mammo performed at [facility]. October 09, 2018, bilateral digital woman screen mammo performed at [facility]. FINDINGS: There are scattered fibroglandular densities. Screening. Digital screening (2D) mammography was performed bilaterally in the CC and MLO projections. Additionally, breast tomosynthesis (3D mammography) was performed bilaterally in the CC and MLO projections. Todays exam was compared to the prior exam/exams. By history, the patient has no complaints of a palpable breast abnormality or other significant breast complaints. The breasts are unchanged in size and shape. There are no chelsie-soft tissue densities or spiculated masses. There is no internal architectural distortion. Once again, stable benign appearing calcifications are seen.There are no suspicious chelsie-calcific clusters. Skin thickening or nipple retraction is not present. IMPRESSION: BI-RADS Category 2- Benign Findings. There is no evidence of malignant alteration of the breasts. Followup examination recommended in one year. The Volpara volumetric breast density category is B, there are scattered areas of fibroglandular densities. This mammogram was read with the assistance of [facility],an FDA approved computer aided detection system for mammography. The lifetime Tyrer-Cuzick score is 4.1 % Negative x-ray reports should not delay surgical consultation if a dominant or clinically suspicious mass is present. Not all breast cancers can be identified by mammography. Therefore, we recommend that you continue to perform regular breast self-examination and physical examination and then promptly contact your physician of any concerns or changes. Adenosis and dense breasts may obscure an underlying neoplasm. Assessment: BI-RADS/ACR category 2 mammogram. Benign Findings. Recommendation Routine screening mammogram of both breasts in 1 year. Electronically Signed By: Rinku Hanson, 03/09/21 [id number]
== END ==
LOC: M WHC 07:34
PROVIDERS: ATTEND Family Medicine
DX: Z12.31 Encounter for screening mammogram for malignant neoplasm of breast (principal)

== ENCOUNTER → 2021-03-09 | Outpatient (CLI) | payer MEDICARE ==
[2021-03-09 11:16] LABS: BASO # 0.1 10^3/uL (0.0-0.2); BASO % 0.7 % (0.0-1.0); EOS # 0.2 10^3/uL (0.0-0.5); EOS % 1.5 % (0.0-3.0); HEMATOCRIT 45.5 % (36.0-47.0); HEMOGLOBIN 15.1 g/dl (12.0-15.5); LYMPH # 1.8 10^3/uL (1.5-5.0); LYMPH % 18.2 % (24.0-44.0); MEAN CORPUSCULAR HEMOGLOBIN 30.8 pg (27.0-33.0); MEAN CORPUSCULAR HGB CONC 33.2 g/dl (32.0-36.5); MEAN CORPUSCULAR VOLUME 92.7 fl (80.0-96.0); MONO # 0.9 10^3/uL (0.0-0.8); NEUTROPHILS % 70.2 % (36.0-66.0); PLATELET COUNT, AUTOMATED 379 10^3/uL (150-450); RED BLOOD COUNT 4.91 10^6/uL (4.00-5.40); WHITE BLOOD COUNT 9.9 10^3/uL (4.0-10.0)
[2021-03-09 12:01] LABS: ALBUMIN 3.6 GM/DL (3.2-5.2); ALT/SGPT 25 U/L (12-78); BILIRUBIN,TOTAL 0.4 MG/DL (0.2-1.0); BLOOD UREA NITROGEN 19 MG/DL (7-18); CALCIUM LEVEL 9.4 MG/DL (8.8-10.2); CARBON DIOXIDE LEVEL 30 MEQ/L (21-32); CHLORIDE LEVEL 104 MEQ/L (98-107); CREATININE FOR GFR 1.21 MG/DL (0.55-1.30); GLUCOSE, FASTING 92 MG/DL (70-100); POTASSIUM SERUM 3.5 MEQ/L (3.5-5.1); SODIUM LEVEL 142 MEQ/L (136-145); TOTAL PROTEIN 7.1 GM/DL (6.4-8.2); URIC ACID 7.9 MG/DL (2.6-6.0)
[2021-03-09 12:36] LABS: MALB URINE SIEMENS 96.6 MG/L; MAU/CREAT RATIO 38.9 MCG/MG (0.0-30.0)
== END ==
LOC: M PLALAB 08:54
PROVIDERS: ATTEND Family Medicine
DX: E53.8 Deficiency of other specified B group vitamins (principal); R73.01 Impaired fasting glucose; M10.9 Gout, unspecified

== ENCOUNTER → 2021-12-22 | Outpatient (CLI) | payer MEDICARE ==
[2021-12-22 10:12] LABS: BASO # 0.1 10^3/uL (0.0-0.2); BASO % 0.8 % (0.0-1.0); EOS # 0.2 10^3/uL (0.0-0.5); EOS % 2.3 % (0.0-3.0); HEMATOCRIT 42.8 % (36.0-47.0); HEMOGLOBIN 13.9 g/dl (12.0-15.5); LYMPH # 1.2 10^3/uL (1.5-5.0); LYMPH % 18.3 % (24.0-44.0); MEAN CORPUSCULAR HEMOGLOBIN 32.3 pg (27.0-33.0); MEAN CORPUSCULAR HGB CONC 32.5 g/dl (32.0-36.5); MEAN CORPUSCULAR VOLUME 99.3 fl (80.0-96.0); MONO # 0.6 10^3/uL (0.0-0.8); MONO % 8.7 % (2.0-8.0); NEUTROPHILS # 4.6 10^3/uL (1.5-8.5); NEUTROPHILS % 69.3 % (36.0-66.0); PLATELET COUNT, AUTOMATED 307 10^3/uL (150-450); RED BLOOD COUNT 4.31 10^6/uL (4.00-5.40); WHITE BLOOD COUNT 6.7 10^3/uL (4.0-10.0)
[2021-12-22 10:31] LABS: HEMOGLOBIN A1c 5.7 %
[2021-12-22 10:56] LABS: ALBUMIN 3.9 GM/DL (3.2-5.2); BILIRUBIN,TOTAL 0.4 MG/DL (0.2-1.0); CALCIUM LEVEL 9.2 MG/DL (8.8-10.2); CHOLESTEROL RISK RATIO 3.235 (<5); CREATININE FOR GFR 1.21 MG/DL (0.55-1.30); GLOMERULAR FILTRATION RATE 46.8 (>39); MAGNESIUM LEVEL 1.6 MG/DL (1.8-2.4); POTASSIUM SERUM 3.9 MEQ/L (3.5-5.1); URIC ACID 4.3 MG/DL (2.6-6.0)
== END ==
LOC: M PLALAB 08:00
PROVIDERS: ATTEND Family Medicine
DX: R73.01 Impaired fasting glucose (principal); E78.2 Mixed hyperlipidemia; E53.8 Deficiency of other specified B group vitamins; M10.9 Gout, unspecified

== ENCOUNTER → 2022-03-11 | Outpatient (CLI) | payer MEDICARE | LOC: M WHC 07:05 | PROVIDERS: ATTEND Family Medicine | DX: Z12.31 Encounter for screening mammogram for malignant neoplasm of breast (principal) ==

== ENCOUNTER → 2022-07-21 | Outpatient (CLI) | payer MEDICARE ==
[2022-07-21 13:50] LABS: BASO # 0.1 10^3/uL (0.0-0.2); BASO % 0.7 % (0.0-1.0); EOS # 0.2 10^3/uL (0.0-0.5); EOS % 2.1 % (0.0-3.0); HEMATOCRIT 43.4 % (36.0-47.0); HEMOGLOBIN 14.2 g/dl (12.0-15.5); LYMPH # 1.5 10^3/uL (1.5-5.0); MEAN CORPUSCULAR HEMOGLOBIN 32.5 pg (27.0-33.0); MEAN CORPUSCULAR HGB CONC 32.7 g/dl (32.0-36.5); MEAN CORPUSCULAR VOLUME 99.3 fl (80.0-96.0); MONO # 0.8 10^3/uL (0.0-0.8); MONO % 9.7 % (2.0-8.0); NEUTROPHILS # 5.7 10^3/uL (1.5-8.5); NEUTROPHILS % 68.8 % (36.0-66.0); PLATELET COUNT, AUTOMATED 288 10^3/uL (150-450); RED BLOOD COUNT 4.37 10^6/uL (4.00-5.40); WHITE BLOOD COUNT 8.3 10^3/uL (4.0-10.0)
[2022-07-21 14:02] LABS: HEMOGLOBIN A1c 5.6 % (4.0-6.0)
[2022-07-21 14:23] LABS: ALBUMIN 3.6 G/DL (3.2-5.2); BILIRUBIN,TOTAL 0.4 MG/DL (0.3-1.2); CALCIUM LEVEL 9.3 MG/DL (8.3-10.6); CREATININE FOR GFR 1.25 MG/DL (0.55-1.30); GLOMERULAR FILTRATION RATE 45.1 (>39); POTASSIUM SERUM 4.9 MMOL/L (3.5-5.1); TOTAL 25(OH) VITAMIN D 34.7 NG/ML (20.0-100.0); TOTAL PROTEIN 6.5 G/DL (5.7-8.2)
== END ==
LOC: M PLALAB 09:09
PROVIDERS: ATTEND Family Medicine
DX: I10 Essential (primary) hypertension (principal); E55.9 Vitamin D deficiency, unspecified; R73.01 Impaired fasting glucose

== ENCOUNTER → 2023-01-05 | Outpatient (REF) | payer MEDICARE ==
[2023-01-05 11:04] LABS: BASO # 0.1 10^3/uL (0.0-0.2); BASO % 0.6 % (0.0-1.0); EOS # 0.2 10^3/uL (0.0-0.5); EOS % 2.4 % (0.0-3.0); HEMATOCRIT 41.1 % (36.0-47.0); HEMOGLOBIN 13.4 g/dl (12.0-15.5); LYMPH # 1.7 10^3/uL (1.5-5.0); LYMPH % 20.5 % (24.0-44.0); MEAN CORPUSCULAR HEMOGLOBIN 32.3 pg (27.0-33.0); MEAN CORPUSCULAR HGB CONC 32.6 g/dl (32.0-36.5); MONO # 0.8 10^3/uL (0.0-0.8); MONO % 9.2 % (2.0-8.0); NEUTROPHILS # 5.6 10^3/uL (1.5-8.5); NEUTROPHILS % 66.6 % (36.0-66.0); PLATELET COUNT, AUTOMATED 288 10^3/uL (150-450); RED BLOOD COUNT 4.15 10^6/uL (4.00-5.40); WHITE BLOOD COUNT 8.5 10^3/uL (4.0-10.0)
[2023-01-05 11:09] LABS: TOTAL PROTEIN,RANDOM URINE 15.9 MG/DL (0.0-14.0)
[2023-01-05 11:14] LABS: CREATININE,RANDOM URINE 155.1 MG/DL
[2023-01-05 11:26] LABS: HEMOGLOBIN A1c 5.9 % (4.0-6.0)
[2023-01-05 11:29] LABS: ALBUMIN 3.5 G/DL (3.2-5.2); BILIRUBIN,TOTAL 0.5 MG/DL (0.3-1.2); CREATININE FOR GFR 1.26 MG/DL (0.55-1.30); GLOMERULAR FILTRATION RATE 44.6 (>39); POTASSIUM SERUM 4.2 MMOL/L (3.5-5.1); TOTAL PROTEIN 6.2 G/DL (5.7-8.2)
== END ==
LOC: M SFHCPLAZ 10:02
PROVIDERS: ATTEND Family Medicine
DX: R73.01 Impaired fasting glucose (principal); I10 Essential (primary) hypertension

== ENCOUNTER → 2023-01-09 | Outpatient (REF) | payer MEDICARE | LOC: M SFHCPLAZ 13:54 | PROVIDERS: ATTEND Family Medicine | DX: E78.2 Mixed hyperlipidemia (principal); E55.9 Vitamin D deficiency, unspecified; R73.01 Impaired fasting glucose ==

== ENCOUNTER → 2023-03-13 | Outpatient (CLI) | payer MEDICARE | LOC: M RAD 09:34 | PROVIDERS: ATTEND Family Medicine | DX: Z12.31 Encounter for screening mammogram for malignant neoplasm of breast (principal); M17.0 Bilateral primary osteoarthritis of knee ==

== ENCOUNTER → 2023-03-13 | Outpatient (CLI) | payer MEDICARE | LOC: M WHC 08:41 | PROVIDERS: ATTEND Family Medicine | DX: Z12.31 Encounter for screening mammogram for malignant neoplasm of breast (principal) ==

== ENCOUNTER → 2023-05-23 | Outpatient (CLI) | payer MEDICARE ==
[2023-05-23 11:43] LABS: URIC ACID 5.6 MG/DL (3.1-7.8)
[2023-05-23 12:11] LABS: ALBUMIN 3.4 G/DL (3.2-5.2); BILIRUBIN,TOTAL 0.4 MG/DL (0.3-1.2); CALCIUM LEVEL 9.2 MG/DL (8.3-10.6); CHOLESTEROL RISK RATIO 3.15 (<5); CREATININE FOR GFR 1.16 MG/DL (0.55-1.30); HDL CHOLESTEROL 50.4 MG/DL (>40); LDL CHOLESTEROL 64.2 MG/DL (<100); NON-HDL-C 108.6 MG/DL; PTH INTACT 33.2 PG/ML (18.5-88.0); TOTAL 25(OH) VITAMIN D 37.5 NG/ML (20.0-100.0); TOTAL PROTEIN 6.3 G/DL (5.7-8.2)
== END ==
LOC: M PLALAB 09:02
PROVIDERS: ATTEND Family Medicine
DX: E78.2 Mixed hyperlipidemia (principal); E55.9 Vitamin D deficiency, unspecified; R73.01 Impaired fasting glucose

== ENCOUNTER → 2023-10-10 | Outpatient (CLI) | payer MEDICARE ==
[2023-10-10 12:29] LABS: TOTAL 25(OH) VITAMIN D 48.9 NG/ML (20.0-100.0)
[2023-10-10 12:30] LABS: HEMOGLOBIN A1c 5.9 % (4.0-6.0); URIC ACID 5.5 MG/DL (3.1-7.8)
[2023-10-10 12:33] LABS: ALBUMIN 3.3 G/DL (3.2-5.2); BILIRUBIN,TOTAL 0.4 MG/DL (0.3-1.2); CALCIUM LEVEL 8.9 MG/DL (8.3-10.6); CHOLESTEROL RISK RATIO 3.14 (<5); CREATININE FOR GFR 1.27 MG/DL (0.55-1.30); HDL CHOLESTEROL 48.7 MG/DL (>40); LDL CHOLESTEROL 48.3 MG/DL (<100); NON-HDL-C 104.3 MG/DL; POTASSIUM SERUM 4.2 MMOL/L (3.5-5.1); PTH INTACT 84.8 PG/ML (18.5-88.0); TOTAL PROTEIN 6.4 G/DL (5.7-8.2)
== END ==
LOC: M PLALAB 08:42
PROVIDERS: ATTEND Family Medicine
DX: E78.2 Mixed hyperlipidemia (principal); E55.9 Vitamin D deficiency, unspecified; R73.01 Impaired fasting glucose

== ENCOUNTER → 2023-10-30 | Outpatient (CLI) | payer MEDICARE | LOC: M WHC 10:41 | PROVIDERS: ATTEND Family Medicine | DX: M81.0 Age-related osteoporosis without current pathological fracture (principal) ==

== ENCOUNTER → 2023-11-13 | Outpatient (CLI) | payer MEDICARE | LOC: M WHC 08:39 | PROVIDERS: ATTEND Family Medicine | DX: K59.09 Other constipation (principal); K76.0 Fatty (change of) liver, not elsewhere classified ==

== ENCOUNTER → 2024-03-14 | Outpatient (CLI) | payer MEDICARE | LOC: M WHC 09:00 | PROVIDERS: ATTEND Family Medicine | DX: Z12.31 Encounter for screening mammogram for malignant neoplasm of breast (principal) ==

== ENCOUNTER → 2024-03-18 | Outpatient (CLI) | payer MEDICARE ==
[2024-03-18 11:52] LABS: HEMOGLOBIN A1c 5.9 % (4.0-6.0)
[2024-03-18 11:59] LABS: ALBUMIN 3.5 G/DL (3.2-5.2); BILIRUBIN,TOTAL 0.4 MG/DL (0.3-1.2); CREATININE FOR GFR 1.35 MG/DL (0.55-1.30); POTASSIUM SERUM 3.5 MMOL/L (3.5-5.1); TOTAL PROTEIN 6.5 G/DL (5.7-8.2)
[2024-03-18 12:01] LABS: FREE T4 1.42 NG/DL (0.89-1.76); THYROID STIMULATING HORMONE 2.674 uIU/ML (0.55-4.78)
== END ==
LOC: M PLALAB 08:40
PROVIDERS: ATTEND Family Medicine
DX: R73.01 Impaired fasting glucose (principal); E07.9 Disorder of thyroid, unspecified

== ENCOUNTER → 2024-03-25 | Outpatient (CLI) | payer MEDICARE | LOC: M WHC 13:00 | PROVIDERS: ATTEND Family Medicine | DX: Z12.39 Encounter for other screening for malignant neoplasm of breast (principal); M19.039 Primary osteoarthritis, unspecified wrist ==

== ENCOUNTER → 2024-03-26 | Outpatient (CLI) | payer MEDICARE | LOC: M PLAIMG 09:02 | PROVIDERS: ATTEND Family Medicine | DX: M19.031 Primary osteoarthritis, right wrist (principal) ==

== ENCOUNTER → 2024-07-23 | Outpatient (CLI) | payer MEDICARE ==
[2024-07-23 13:11] LABS: INR 0.91; PARTIAL THROMBOPLASTIN TIME 26.5 SECONDS (24.8-34.2); PROTHROMBIN TIME 12.6 SECONDS (12.5-14.5)
[2024-07-23 13:14] LABS: ALBUMIN 3.5 G/DL (3.2-5.2); BILIRUBIN,TOTAL 0.4 MG/DL (0.3-1.2); CREATININE FOR GFR 1.15 MG/DL (0.55-1.30); GLOMERULAR FILTRATION RATE 49.4 (>39); TOTAL PROTEIN 6.4 G/DL (5.7-8.2)
[2024-07-23 13:16] LABS: THYROID STIMULATING HORMONE 1.947 uIU/ML (0.55-4.78)
[2024-07-23 13:17] LABS: FREE T4 1.26 NG/DL (0.89-1.76)
[2024-07-23 15:17] LABS: HEMOGLOBIN A1c 5.8 % (4.0-6.0)
[2024-07-25 02:38] LABS: TISSUE TRANSGLUTAMINASE IgA < 1.0 U/mL (<15.0)
== END ==
LOC: M PLALAB 09:27
PROVIDERS: ATTEND Family Medicine
DX: R73.01 Impaired fasting glucose (principal); E78.2 Mixed hyperlipidemia; I10 Essential (primary) hypertension; R74.8 Abnormal levels of other serum enzymes; K74.00 Hepatic fibrosis, unspecified; M85.80 Other specified disorders of bone density and structure, unspecified site

== ENCOUNTER 2024-08-23 07:06 | Day surgery (SDC) | payer MEDICARE ==
[~2024-08-23] VITALS: Ht 162.6 cm; Wt 104.1 kg
[~2024-08-23 07:06] MED LIST changes: +ALLO300T2 PO; +ATEN50TA9 PO; +ATOR40TA75 PO; +B-12100010 PO; +CELE0.09 PO; +DICL1SOL4 TD; -DICL5SOL3 TD; +ECOT81TA5 PO; +HM C500T4 PO; +LEXA1TAB2 PO; +LIDOCAINE W/EPINEPHRINE 1% 20ML VIAL XX ONE; +MULTTAB61 PO; +OMEP40CA5 PO; +OXYB10TA23 PO; +PRIM50TA6 PO; +SODIUM BICARBONATE 8.4% INJ 50MEQ 50ML VIAL XX ONE; +SUCR1TAB56 PO; +VENTAER INH; +VITA-243 PO; +VITA100093 PO
[2024-08-23] MEDS: BACITRACIN OINTMENT 30GM TUBE As Ordered ONE (09:53)
[2024-08-23 10:02] VITALS: BP 151/69; TEMP 98.1; O2SAT 97
== END 2024-08-23 10:12 | disposition home or self-care (01) ==
LOC: M SDC 07:06
PROVIDERS: ATTEND Orthopaedic Surgery Hand Surgery
DX: G56.02 Carpal tunnel syndrome, left upper limb (principal)

== ENCOUNTER → 2024-10-18 | Outpatient (CLI) | payer MEDICARE ==
[~2024-10-18] MED LIST changes: -AMBI10TA PO; -LIDOCAINE W/EPINEPHRINE 1% 20ML VIAL XX ONE; +PREG-35 PO; -PREG100CA PO; -SODIUM BICARBONATE 8.4% INJ 50MEQ 50ML VIAL XX ONE; +ZOLP-533 PO
== END ==
LOC: M WUC 10:28
PROVIDERS: ATTEND Physician Assistant
DX: J06.9 Acute upper respiratory infection, unspecified (principal); R05.9 Cough, unspecified; R06.02 Shortness of breath

== ENCOUNTER → 2024-11-12 | Outpatient (CLI) | payer MEDICARE ==
[2024-11-12 13:50] LABS: BASO # 0.1 10^3/uL (0.0-0.2); BASO % 0.7 % (0.0-1.0); EOS # 0.2 10^3/uL (0.0-0.5); EOS % 2.5 % (0.0-3.0); HEMATOCRIT 40.2 % (36.0-47.0); HEMOGLOBIN 13.2 g/dl (12.0-15.5); LYMPH # 1.6 10^3/uL (1.5-5.0); LYMPH % 17.2 % (24.0-44.0); MEAN CORPUSCULAR HEMOGLOBIN 32.8 pg (27.0-33.0); MEAN CORPUSCULAR HGB CONC 32.8 g/dl (32.0-36.5); MEAN CORPUSCULAR VOLUME 99.8 fl (80.0-96.0); MONO # 0.8 10^3/uL (0.0-0.8); MONO % 8.1 % (2.0-8.0); NEUTROPHILS # 6.7 10^3/uL (1.5-8.5); PLATELET COUNT, AUTOMATED 258 10^3/uL (150-450); RED BLOOD COUNT 4.03 10^6/uL (4.00-5.40); WHITE BLOOD COUNT 9.5 10^3/uL (4.0-10.0)
[2024-11-12 14:06] LABS: HEMOGLOBIN A1c 5.9 % (4.0-6.0)
[2024-11-12 14:16] LABS: FERRITIN 105.4 NG/ML (7.3-270.7)
[2024-11-12 14:17] LABS: ALBUMIN 3.4 G/DL (3.2-5.2); ALKALINE PHOSPHATASE 145 U/L (35-104); ALT/SGPT 25 U/L (7.0-40); AST/SGOT 22 U/L (<34); BILIRUBIN,TOTAL 0.4 MG/DL (0.3-1.2); BLOOD UREA NITROGEN 16 MG/DL (9-23); CALCIUM LEVEL 9.2 MG/DL (8.3-10.6); CARBON DIOXIDE LEVEL 32 MMOL/L (20-31); CHLORIDE LEVEL 98 MMOL/L (98-107); CHOLESTEROL LEVEL 145 MG/DL (<200); CHOLESTEROL RISK RATIO 3.07 (<5); CREATININE FOR GFR 1.23 MG/DL (0.55-1.30); GLOMERULAR FILTRATION RATE 46.4 (>39); GLUCOSE, FASTING 101 MG/DL (74-106); HDL CHOLESTEROL 47.1 MG/DL (>40); LDL CHOLESTEROL 42.1 MG/DL (<100); NON-HDL-C 97.9 MG/DL; POTASSIUM SERUM 3.7 MMOL/L (3.5-5.1); SODIUM LEVEL 142 MMOL/L (136-145); TOTAL PROTEIN 6.3 G/DL (5.7-8.2); TRIGLYCERIDES LEVEL 279 MG/DL (<150)
[2024-11-12 14:20] LABS: VITAMIN B12 LEVEL > 2000 PG/ML (211-911)
== END ==
LOC: M PLALAB 09:15
PROVIDERS: ATTEND Family Medicine
DX: E78.2 Mixed hyperlipidemia (principal); R73.01 Impaired fasting glucose; I10 Essential (primary) hypertension; E53.8 Deficiency of other specified B group vitamins; K74.00 Hepatic fibrosis, unspecified

== ENCOUNTER → 2025-02-26 | Outpatient (CLI) | payer MEDICARE ==
[~2025-02-26] MED LIST changes: +ELIQ5TAB PO
[2025-02-26 11:49] LABS: BASO # 0.1 10^3/uL (0.0-0.2); BASO % 0.7 % (0.0-1.0); EOS # 0.2 10^3/uL (0.0-0.5); EOS % 2.4 % (0.0-3.0); LYMPH # 1.9 10^3/uL (1.5-5.0); LYMPH % 21.5 % (24.0-44.0); MONO # 0.6 10^3/uL (0.0-0.8); MONO % 7.1 % (2.0-8.0); NEUTROPHILS # 5.9 10^3/uL (1.5-8.5); NEUTROPHILS % 67.4 % (36.0-66.0); PLATELET COUNT, AUTOMATED 503 10^3/uL (150-450)
[2025-02-26 12:42] LABS: ALT/SGPT 22.0 U/L (7.0-40); AST/SGOT 19.0 U/L (<34); CALCIUM LEVEL 9.5 MG/DL (8.3-10.6); CARBON DIOXIDE LEVEL 28.0 MMOL/L (20-31); CHLORIDE LEVEL 101.0 MMOL/L (98-107); CREATININE FOR GFR 1.2 MG/DL (0.55-1.30); GLOMERULAR FILTRATION RATE 47.8 (>39); POTASSIUM SERUM 4.0 MMOL/L (3.5-5.1); SODIUM LEVEL 145.0 MMOL/L (136-145)
[2025-02-26 12:46] LABS: VITAMIN B12 LEVEL 1463.0 PG/ML (211-911)
[2025-03-03 15:57] LABS: FACTOR II PROTHROMBIN GENE AN NEGATIVE
[2025-03-03 17:37] LABS: FACTOR V LEIDEN FOR MEDINET NEGATIVE
== END ==
LOC: M PLALAB 08:31
PROVIDERS: ATTEND Family Medicine
DX: E78.2 Mixed hyperlipidemia (principal); E53.8 Deficiency of other specified B group vitamins; I10 Essential (primary) hypertension; Z86.711 Personal history of pulmonary embolism; D50.9 Iron deficiency anemia, unspecified

== ENCOUNTER → 2025-03-03 | Outpatient (POV) | payer MEDICARE ==
[~2025-03-03] VITALS: Ht 160 cm; Wt 96.8 kg
[2025-03-03 13:09] VITALS: BP 110/70; O2SAT 97
== END ==
LOC: M IRPOV 12:24
PROVIDERS: ATTEND Registered Nurse School
DX: Z48.812 Encounter for surgical aftercare following surgery on the circulatory system (principal); I26.99 Other pulmonary embolism without acute cor pulmonale; Z79.01 Long term (current) use of anticoagulants

== ENCOUNTER → 2025-03-13 | Outpatient (CLI) | payer MEDICARE ==
[~2025-03-13] MED LIST changes: +CRAN500T4 PO; -HM C500T4 PO
== END ==
LOC: M CARPUL 14:42
PROVIDERS: ATTEND Radiology Diagnostic Radiology
DX: I26.99 Other pulmonary embolism without acute cor pulmonale (principal)

== ENCOUNTER → 2025-03-17 | Outpatient (CLI) | payer MEDICARE ==
[~2025-03-17] MED LIST changes: +CENT1TAB PO; +PROBCAP14 PO
== END ==
LOC: M WHC 08:06
PROVIDERS: ATTEND Family Medicine
DX: Z12.31 Encounter for screening mammogram for malignant neoplasm of breast (principal); R92.313 Mammographic fatty tissue density, bilateral breasts

== ENCOUNTER → 2025-03-19 | Outpatient (POV) | payer MEDICARE ==
[~2025-03-19] VITALS: Ht 160 cm; Wt 96.8 kg
[2025-03-19 09:21] VITALS: BP 122/72; O2SAT 100
== END ==
LOC: M IRPOV 09:17
PROVIDERS: ATTEND Registered Nurse School
DX: Z48.812 Encounter for surgical aftercare following surgery on the circulatory system (principal); Z79.01 Long term (current) use of anticoagulants; Z86.711 Personal history of pulmonary embolism

== ENCOUNTER → 2025-04-01 | Outpatient (CLI) | payer MEDICARE ==
[2025-04-01 11:31] LABS: BASO # 0.1 10^3/uL (0.0-0.2); BASO % 0.5 % (0.0-1.0); EOS # 0.2 10^3/uL (0.0-0.5); EOS % 1.6 % (0.0-3.0); LYMPH # 1.7 10^3/uL (1.5-5.0); LYMPH % 17.9 % (24.0-44.0); MONO # 0.7 10^3/uL (0.0-0.8); MONO % 7.1 % (2.0-8.0); NEUTROPHILS # 6.6 10^3/uL (1.5-8.5); NEUTROPHILS % 71.2 % (36.0-66.0); PLATELET COUNT, AUTOMATED 356 10^3/uL (150-450)
[2025-04-01 14:39] LABS: ESTIMATED AVERAGE GLUCOSE 117.0 MG/DL (60-110)
[2025-04-01 14:57] LABS: TOTAL 25(OH) VITAMIN D 89.4 NG/ML (20.0-100.0)
[2025-04-01 14:59] LABS: ALT/SGPT 26.0 U/L (7.0-40); AST/SGOT 24.0 U/L (<34); CALCIUM LEVEL 9.4 MG/DL (8.3-10.6); CARBON DIOXIDE LEVEL 31.0 MMOL/L (20-31); CHLORIDE LEVEL 98.0 MMOL/L (98-107); CREATININE FOR GFR 1.19 MG/DL (0.55-1.30); FREE T4 1.35 NG/DL (0.89-1.76); GLOMERULAR FILTRATION RATE 48.3 (>39); POTASSIUM SERUM 3.7 MMOL/L (3.5-5.1); PTH INTACT 32.9 PG/ML (18.5-88.0); SODIUM LEVEL 142.0 MMOL/L (136-145)
== END ==
LOC: M PLALAB 09:00
PROVIDERS: ATTEND Family Medicine
DX: E78.2 Mixed hyperlipidemia (principal); E53.8 Deficiency of other specified B group vitamins; I10 Essential (primary) hypertension; R73.01 Impaired fasting glucose; E55.9 Vitamin D deficiency, unspecified

== ENCOUNTER → 2025-04-14 | Outpatient (CLI) | payer MEDICARE | LOC: M PLAIMG 09:50 | PROVIDERS: ATTEND Family Medicine | DX: M17.0 Bilateral primary osteoarthritis of knee (principal) ==

== ENCOUNTER → 2025-06-16 | Outpatient (POV) | payer MEDICARE | LOC: M IRPOV 11:30 | PROVIDERS: ATTEND Registered Nurse School | DX: Z09 Encounter for follow-up examination after completed treatment for conditions other than malignant neoplasm (principal); Z86.711 Personal history of pulmonary embolism; Z79.01 Long term (current) use of anticoagulants; Z79.899 Other long term (current) drug therapy; Z82.49 Family history of ischemic heart disease and other diseases of the circulatory system; Z83.6 Family history of other diseases of the respiratory system; Z87.891 Personal history of nicotine dependence ==